=== PATIENT | female | born 1980 | race Caucasian/White ===

== ENCOUNTER 2023-03-27 09:08 | Day surgery (SDC) | payer OTHER ==
[2023-03-27] MEDS ORDERED: LACTATED RINGERS 1,000 ML IV ONE (09:30)
[2023-03-27 09:57] LABS: HCG UR QUAL NEGATIVE
[2023-03-27] MEDS ORDERED: BUPIVACAINE 0.5% PF 10 ML VIAL ONE (10:09)
[2023-03-27] MEDS ORDERED: POTASSIUM IODIDE/IODINE 14 ML SOLUTION ONE (10:09)
[2023-03-27 10:17] LABS: BASOPHILS # (AUTO) 0.1 10^3/uL (0.0-0.1); BASOPHILS % (AUTO) 0.6 %; EOSINOPHILS # (AUTO) 0.2 10^3/uL (0.0-0.7); EOSINOPHILS % (AUTO) 2.7 %; HCT - HEMATOCRIT 37.4 % (37.0-47.0); HGB - HEMOGLOBIN 12.1 g/dL (12.0-16.0); LYMPHOCYTES # (AUTO) 1.8 10^3/uL (1.5-3.5); LYMPHOCYTES % (AUTO) 21.8 %; MEAN CORPUSCULAR HEMOGLOBIN 29.1 pg (27.0-31.0); MEAN CORPUSCULAR HGB CONC 32.4 g/dL (32.0-36.0); MEAN CORPUSCULAR VOLUME 89.9 fL (81.0-99.0); MONOCYTES # (AUTO) 0.6 10^3/uL (0.0-1.0); MONOCYTES % (AUTO) 7.4 %; NEUTROPHILS # (AUTO) 5.5 10^3/uL (1.5-6.6); NEUTROPHILS % (AUTO) 67.1 %; PLT - PLATELET COUNT 366 10^3/uL (130-450); RED BLOOD COUNT 4.16 10^6/uL (4.20-5.40); RED CELL DISTRIBUTION WIDTH 13.5 % (12.0-15.0); WHITE BLOOD COUNT 8.3 x10^3/uL (4.8-10.8)
--- NOTE | 2023-03-27 10:32 | ANESTHESIA ---
Pre-Anesthesia VS, & Labs - Diagnosis GABBIE-2 - Procedure LEEP Vital Signs: Temp Pulse Resp BP Pulse Ox O2 Flow Rate 36.1 C L 70 12 124/98 H 99 03/27/23 09:35 03/27/23 09:35 03/27/23 09:35 03/27/23 09:35 03/27/23 09:35 Height: 5 ft 3 in Weight (kg): 78.7 kg Body Mass Index: 30.7 BMI Classification: Obese - NPO >8 hours - Is Patient ?: No - Lab Results Current Lab Results: Laboratory Tests 03/27/23 09:25: WBC 8.3, RBC 4.16 L, Hgb 12.1, Hct 37.4, MCV 89.9, MCH 29.1, MCHC 32.4, RDW 13.5, Plt Count 366, MPV 10.0, Neut # (Auto) 5.5, Lymph # (Auto) 1.8, Vernon # (Auto) 0.6, Eos # (Auto) 0.2, Baso # (Auto) 0.1, Absolute Nucleated RBC 0.00, Nucleated RBC % 0.0 Lab results reviewed: Yes Fish Bones: 03/27/23 09:25 Home Medications and Allergies Home Medications: Ambulatory Orders Ibuprofen [Motrin] 1 tablet PO Q8H PRN 03/19/23 Melatonin 1 mg PO HS PRN 03/27/23 Ibuprofen [Motrin] 1 tablet PO Q8H PRN 03/19/23 Melatonin 1 mg PO HS PRN 03/27/23 Allergies/Adverse Reactions: Allergies Allergy/AdvReac Type Severity Reaction Status Date / Time No Known Drug Allergies Allergy Verified 03/19/23 10:25 Anes History & Medical History - Anesthetic History Anesthesia Complications: reports: No previous complications - Medical History Cardiovascular: reports: None Pulmonary: reports: None Gastrointestinal: reports: None Urinary: reports: None Neuro: reports: Headaches Musculoskeletal: reports: None Endocrine/Autoimmune: reports: None Blood Disorders: reports: None Skin: reports: None Smoking Status: Never smoker Psychosocial: reports: No issues indicated History of Cancer?: No - Surgical History General: reports: Other ([facility]) Exam General: Alert, Oriented x3, Cooperative, No acute distress Dental: WNL Mouth Openin Fingerbreadth Neck Mobility: Normal Mallampati classification: II Thyromental Distance: 4-6 cm Mental/Cognitive Status: Alert/Oriented X3, Normal for patient Plan Anesthesia Type: General Consent for Procedure(s) Verified and Reviewed: Yes Code Status: Attempt Resuscitation ASA classification: 1-Healthy patient Is this case an emergency?: No
[2023-03-27] MEDS ORDERED: PROPOFOL 500 MG/50 ML 500 MG/50 ML VIAL ONE ×2 (11:08→11:42)
[2023-03-27] MEDS ORDERED: fentaNYL 100 MCG/2 ML VIAL ONE (11:08)
[2023-03-27] MEDS ORDERED: ONDANSETRON 4 MG/2 ML VIAL ONE (11:42)
[2023-03-27] MEDS ORDERED: DEXAMETHASONE 4 MG/ML VIAL ONE (11:42)
[2023-03-27] MEDS ORDERED: FERRIC SUBSULFATE 8 ML SOLUTION (FOR OR) TOP ONE (11:52)
[2023-03-27] MEDS ORDERED: POTASSIUM IODIDE/IODINE 14 ML SOLUTION TOP ONE (11:52)
[2023-03-27] MEDS ORDERED: BUPIVACAINE 0.5% PF 10 ML VIAL IM ONE ×2 (11:52)
[2023-03-27] MEDS ORDERED: PROPOFOL 200 MG/20 ML VIAL IVP ONE (12:10)
[2023-03-27] MEDS ORDERED: ONDANSETRON 4 MG/2 ML VIAL IVP PRN (12:19)
[2023-03-27] MEDS ORDERED: NALOXONE 0.4 MG/ML VIAL IVP PRN (12:19)
[2023-03-27] MEDS ORDERED: ePHEDrine 50 MG/ML VIAL IVP PRN (12:19)
[2023-03-27] MEDS ORDERED: fentaNYL 100 MCG/2 ML VIAL IVP PRN (12:19)
[2023-03-27] MEDS ORDERED: ATROPINE ABBOJECT 1 MG/10 ML SYRINGE IVP PRN (12:19)
[2023-03-27] MEDS ORDERED: HYDROmorphone 0.5 MG/0.5 ML SYRINGE IVP PRN (12:19)
[2023-03-27] MEDS ORDERED: HYDROcod/ACETAM 10 MG/325 MG TABLET PO PRN (12:28)
[2023-03-27] MEDS ORDERED: LACTATED RINGERS 200 ML IV ONE (12:31)
--- NOTE | 2023-03-27 12:36 | OPERATIVE REPORT ---
Operative Report - General Procedure Date: 03/27/23 Planned Procedure: LEEP conization Pre-Op Diagnosis: GABBIE-2 Procedure Performed: LEEP conization Post Op Diagnosis: GABBIE-2 - Procedure Note Primary Surgeon: Georges Ritchie MD Anesthesia Provider: Deondre Saeed CRNA Anesthesia Technique: Other (IV general) Pathology: Cervical LEEP conization IV Fluids (mL): 1,000 Estimated Blood Loss (mL): 100 Urine Output (mL): 50 - Other Other Information/Narrative: Patient was taken the operating room where IV general anesthesia was obtained without difficulty and the patient was placed in the dorsolithotomy position. She was prepped and draped in usual sterile fashion using chlorhexidine. Coated bivalve speculum was attached to suction and placed in the vagina with visualization of the cervix. Acetic acid used to assess acetowhite changes of the cervix. The transformation zone was known noted to be the borders of the anterior edge of the cervix. There were diffuse acetowhite changes at that border, brightest at the posterior border of the cervix. Using Lugol's solution, the cervix was dyed, and the entire face of the cervix had decreased uptake with the normal uptake at the distal border. The anterior lip the cervix was grasped with a single-tooth tenaculum and using electrocautery loop, the posterior edge of the cervix was starting the incision. This was carried around the anterior lip until a circumferential colon was made. Progress was then made deep into the cervix to detach the cervical conization from the underlying tissue. A sample was removed from the vagina and tagged at 12:00. Cervical remnant was cauterized using coagulation from the ball tip. The posterior segment about 6:00 was bleeding heavier, so 2 [id number] stitches were thrown to stop the bleeding. This accomplished most hemostasis. Small amount of oozing was stopped using Monsel solution. Reexamination of the cervix demonstrated hemostasis and the instruments were removed from the vagina. Sponge and needle counts were correct times 2. The patient was taken to the PACU in stable condition.
[2023-03-27] MEDS ORDERED: LACTATED RINGERS 1,000 ML IV SCH (13:00)
[2023-03-27 13:20] VITALS: BP 120/71; O2SAT 100
--- NOTE | 2023-03-27 16:15 | ANESTHESIA POST OP EVALUATION ---
Anesthesia Post Eval - Post Anesthesia Eval Vitals: Last Vital Signs Temp 36.2 C L 03/27/23 13:10 Pulse 62 03/27/23 13:10 Resp 12 03/27/23 13:10 BP 120/71 03/27/23 13:10 Pulse Ox 100 03/27/23 13:10 O2 Flow Rate CV Function Including HR & BP: Stable Pain Control: Satisfactory Nausea & Vomiting: Negative Mental Status: Baseline Respiratory Status: Airway Patent Hydration Status: Satisfactory Anesthesia Complications: None
== END 2023-03-27 09:09 | disposition home or self-care (01) ==
LOC: SDS 09:08
PROVIDERS: ATTEND Obstetrics & Gynecology
PROC: 0UBC7ZX Excision of Cervix, Via Natural or Artificial Opening, Diagnostic (ICD-10-PCS; principal; 2023-03-27 10:45)
DX: N87.0 Mild cervical dysplasia (principal); E66.9 Obesity, unspecified; Z32.02 Encounter for pregnancy test, result negative; Z68.30 Body mass index [BMI] 30.0-30.9, adult
CPT/HCPCS: 57522; 81025; 85025; A9270; J7120